=== PATIENT | female | born 1955 | race Caucasian/White ===

== ENCOUNTER → 2020-04-22 | Outpatient (CLI) | payer BC | LOC: M.RAD 10:06 | PROVIDERS: ATTEND Internal Medicine | DX: R07.89 Other chest pain (principal) ==

== ENCOUNTER → 2020-05-14 | Outpatient (CLI) | payer BC | LOC: M.CT 08:53 | PROVIDERS: ATTEND Internal Medicine | DX: J98.4 Other disorders of lung (principal); G43.609 Persistent migraine aura with cerebral infarction, not intractable, without status migrainosus; I63.9 Cerebral infarction, unspecified; I10 Essential (primary) hypertension; J45.21 Mild intermittent asthma with (acute) exacerbation; N63.10 Unspecified lump in the right breast, unspecified quadrant ==

== ENCOUNTER → 2020-07-11 | Outpatient (CLI) | payer BC | LOC: M.RAD 09:46 | PROVIDERS: ATTEND Registered Nurse Diabetes Educator | DX: M25.562 Pain in left knee (principal) ==